=== PATIENT | female | born 2000 | race Caucasian/White ===

== ENCOUNTER 2024-08-29 04:13 | Outpatient (CLI) | payer BC, MEDICAID, SELFPAY ==
[2024-08-29] VITALS (11 sets, daily range): BP systolic 118–130; BP diastolic 64–81; PULSE 106–127; O2SAT 97–98; BMI 28.5
[2024-08-29 04:43] LABS: Absolute Neutrophil Count 17.9 X10^3/uL (2.0-7.7); Basophil# 0.04 X10^3/uL; Basophil% 0.2 % (0-1); Eosinophil# 0.01 X10^3/uL; Hematocrit 32.1 % (37-47); Hemoglobin 11.6 g/dL (12.0-15.0); Lymphocyte % 7.9 % (19-41); Mean Corp Hgb Conc 36.1 g/dL (32-36); Mean Corpuscular Hgb 34.5 pg (27.0-32.0); Mean Corpuscular Volume 95.5 fL (81-99); Mean Platelet Vol. 10.5 fl (6.2-12.0); Monocyte# 1.82 X10^3/uL; Monocyte% 8.4 % (0-10); NRBC Flagged by Analyzer 0 % (0-5); Neutrophil # 17.85 X10^3/uL (2.7-7.7); Neutrophil % 82.8 % (47-70); POSITIVE DIFFERENTIAL YES; Platelet Count 261 K/mm3 (150-450); RBC Distribution Width CV 11.9 % (11.6-14.6); RBC Distribution Width SD 41.4 fl (35.1-43.9); Red Blood Count 3.36 M/mm3 (4.2-5.4); White Blood Count 21.6 K/mm3 (4.4-11.0)
[2024-08-29 04:48] LABS: Differential Indicated SCAN CRITERIA MET
[2024-08-29 05:43] LABS: Differential Comment SCANNED; Platelet Estimate ADEQUATE (ADEQ); Red Cell Morphology NORM C+C NORMAL (NORM C&C)
--- NOTE | 2024-08-29 06:00 | PCM.HP.OB ---
HPI - General General Date of Admission: 08/29/24 Date of Service: 08/29/24 Chief Complaint: bleeding after delivery HPI Narrative ZEHRA WATERS, is a 24 F who presents G1 who had a late 08/28/24 of female . Presented to L&D this am c/o bleeding and vaginal laceration. States no pain when sitting still. Denies CP/SOB/lightheadedness. Has been up to void a couple of times. No other c/o Past medical history: Denies any major medical issues Social history denies any tobacco alcohol or drug use, denies any history sexually-transmitted diseases Past surgical history: None Allergies none, patient states she does have a gluten intolerance Medications: None Maternal Data Information Final DELANEY: 08/19/24 Gestational age: 41 3/7 PFSH PFSH Allergy/AdvReac Type Severity Reaction Status Date / Time No Known Allergies Allergy Verified 08/29/24 05:42 ROS Constitutional Constitutional: Denies fatigue, fever(s) or malaise Eyes Eyes: Denies change in vision ENT HEENT: Denies dizziness or headache(s) Cardiovascular Cardiovascular: Denies chest pain, dyspnea or lightheadedness Respiratory/Chest Respiratory/Chest: Denies cough or dyspnea Gastrointestinal Gastrointestinal: Denies change in bowel habits Genitourinary Genitourinary: Denies burning urination or genital lesions Integumentary Integumentary: Denies rash Neurologic Neurologic: Denies confusion, dizziness, headache(s), numbness or weakness Vital Signs Vital Signs Vital Signs: 08/29/24 04:27 08/29/24 04:27 08/29/24 04:32 Pulse Rate 125 H 111 H Blood Pressure 119/65 BP Systolic 119 BP Diastolic 65 Pulse Ox 08/29/24 04:32 08/29/24 04:37 08/29/24 04:37 Pulse Rate 125 H Blood Pressure BP Systolic BP Diastolic Pulse Ox 97 97 08/29/24 04:42 08/29/24 04:42 08/29/24 04:42 Pulse Rate 121 H 112 H Blood Pressure 118/64 BP Systolic 118 BP Diastolic 64 Pulse Ox 08/29/24 04:42 08/29/24 04:47 08/29/24 04:47 Pulse Rate 118 H Blood Pressure BP Systolic BP Diastolic Pulse Ox 97 97 08/29/24 04:52 08/29/24 04:52 08/29/24 04:57 Pulse Rate 122 H Blood Pressure 124/66 H BP Systolic 124 BP Diastolic 66 Pulse Ox 98 08/29/24 04:57 08/29/24 04:57 08/29/24 05:02 Pulse Rate 113 H 120 H Blood Pressure BP Systolic BP Diastolic Pulse Ox 98 08/29/24 05:02 08/29/24 05:07 08/29/24 05:07 Pulse Rate 127 H Blood Pressure BP Systolic BP Diastolic Pulse Ox 98 98 08/29/24 05:12 08/29/24 05:12 Pulse Rate 120 H Blood Pressure 129/81 H BP Systolic 129 BP Diastolic 81 Pulse Ox Weight Weight: 85.003 kg Body Mass Index (BMI) 28.5 Physical Exam Narrative extensive perineal laceration through anal sphincter. Some small active bleeding. Const alert and no apparent distress General Appearance: cooperative HEENT normocephalic Resp normal respiratory effort Cardio regular rate GI soft to palpation GI Narrative: gravid, nontender, appropriate for gestational age Extremity no calf tenderness General Extremity: edema Skin no wounds Rashes: No rashes noted Psych activity/motor behavior normal Labs Labs Labs: Blood Type A POSITIVE Antibody Screen NEGATIVE Hct 32.1 % (37-47) L Hgb 11.6 g/dL (12.0-15.0) L Assessment & Plan (1) Anal sphincter tear w/o 3rd deg perineal laceration, delivered: PLAN: Risk benefits and alternatives to repair of third-degree laceration repair were discussed with the patient. Consent was signed. She agrees to proceed. Bleeding is stable now. Brief ultrasound was done which showed some small amount of retained clots as well.
[2024-08-29] MEDS: Ketorolac 30 MG/ML Syringe IV (06:04)
[2024-08-29] MEDS: Lidocaine 1% (20 ml mdv) 20 ML Vial INFILT ×2 (06:04→06:30)
[2024-08-29] MEDS: Acetaminophen 500 MG Tablet 1000 MG PO (06:28)
--- NOTE | 2024-08-29 06:51 | EX.PCM.OBVAG ---
Assessment & Plan (1) Anal sphincter tear w/o 3rd deg perineal laceration, delivered: Maternal Data Information Final DELANEY: 08/19/24 Gestational age: 41 2/7 Vaginal Delivery Maternal Presentation Maternal Presentation: Patient presented after delivery at home on 08/28/2024 she had a spontaneous vaginal delivery at home with her home computer science teacher and rolling mill plugger. She had extensive laceration and was brought in for repair. Vaginal Delivery Information Surgeon/Practitioner: Ana Hennessy Date of Procedure: 08/29/24 Pre-Procedure Diagnosis: Third-degree laceration Post-Procedure Diagnosis: Same Type of anesthesia: Local with 1% Lidocaine (30 cc) Special Medications: IV Toradol x 1 Estimated Blood Loss: 100 Fluids Replaced: 0 Findings Description of procedure: Patient arrived from home after delivery. I did not due to the delivery. She had some vaginal bleeding and extensive laceration and her computer science teacher recommended she come to the hospital for repair. When I arrived her bleeding had been minimal since arrival. A brief ultrasound was done that showed some clots. She was found to have a grade 3A third-degree laceration. The capsule was torn but less than 50% of the muscle of the anal sphincter was torn. After consent was obtained, she was placed in the dorsolithotomy position and some Betadine was used to clean the area. A brief exploration of the uterus was done to remove some clots and the uterus was then firm and remained firm. 30 cc of 1% Xylocaine were used to anesthetize the area. 3-0 PDS was used to reinforce the capsule and muscle of the anal sphincter. There were bilateral vaginal sulcus tears that were repaired with 3-0 Vicryl suture in a running locked fashion. The remaining portion of the repair was done with 3-0 Vicryl repeat suture in a running standard fashion. Excellent hemostasis was noted. A rectal exam was done and the rectal mucosa was intact. Sponge and needle counts were correct. A vaginal sweep was performed by me. Patient tolerated the procedure well. Offered [facility] pitocin x1. Declines for now but would accept uterotonics if bleeding increases. Desires d/c home DIONNE. D/w her if voids and bleeding is average in 1 hr may d/c home. She is in agreement w/ plan Specimen collected: No Public Health Internship filler leaf cutter long: No Post Vaginal Deli Episiotomy Description: Vaginal Extension/lac (bilateral sulcus tears) and 3rd degree (3a) Complication Complications: No
--- NOTE | 2024-08-29 06:59 | DCINST_ITS ---
Discharge Instructions Diet Discharge Diet: No restrictions DC O2, CPAP, BIPAP needs Additional Home O2 Discharge instructions: No Dressing / Incision May resume sexual activity in: 6 weeks Dressing / Incision Call your doctor if your incision/area has: Continuous Slow Oozing, Sudden Increased Bleeding, Foul Smelling Discharge and Swelling at the incision site Call your doctor if you observe: Fever of 101 or Higher and Inability to urinate Follow Up Care Please Follow Up With: Ana Hennessy MD When: Follow up with our office in 1-2 and 6 weeks or as needed. [phone] Test Results: Test results from this visit will be discussed in further detail at your follow- up appointment, if applicable. Discharge Plan Admission Reason For Visit: Repair of 3rd degree laceration Attending Provider: Ana Hennessy Primary Care Provider: Care Physician,Rayne Primary Discharge Orders/Prescriptions Referrals / Follow Up: Care Physician,No Primary [Primary Care Provider] - Disposition Patient Disposition: Home, Self Care
[2024-08-29 15:14] LABS: Pathologist Review Reviewed
== END 2024-08-29 07:45 | disposition home or self-care (01) ==
LOC: WPOUT 04:25 → WP 04:25
PROVIDERS: Referring Provider Obstetrics & Gynecology; Visit Provider Obstetrics & Gynecology
DX: O70.21 Third degree perineal laceration during delivery, IIIa (principal); Z3A.41 41 weeks gestation of pregnancy
CPT/HCPCS: 59300; 96374; 36415; 85025; 86850; 86900; 86901; 94760; 96372; 99221; G0378